=== PATIENT | male | born 1995 | race Caucasian/White ===

== ENCOUNTER 2020-09-30 12:27 | Emergency (ER) | payer OTHER ==
[~2020-09-30 12:27] MED LIST: MOTRIN600 MG PO; NAPROXEN500 MG PO; NEOSPORIN OIN14.2 GM TOP
[2020-10-05 00:06] LABS: CHLAMYDIA TRACHOMATIS, NAA Positive (Negative); NEISSERIA GONORRHOEAE, NAA Negative (Negative)
== END 2020-09-30 15:49 | disposition home or self-care (01) ==
LOC: FER 12:27
PROVIDERS: Nurse Practitioner Family
DX: A64 Unspecified sexually transmitted disease (principal); J02.9 Acute pharyngitis, unspecified
CPT/HCPCS: 87491; 87591; 99283; J0696

== ENCOUNTER 2020-10-08 17:51 | Emergency (ER) | payer OTHER ==
[2020-10-08] MEDS ORDERED: IBUPROFEN800 MG PO (19:13)
== END 2020-10-08 19:35 | disposition home or self-care (01) ==
LOC: FER 17:51
DX: S90.31XA Contusion of right foot, initial encounter (principal); M25.571 Pain in right ankle and joints of right foot; F17.210 Nicotine dependence, cigarettes, uncomplicated; W10.9XXA Fall (on) (from) unspecified stairs and steps, initial encounter; Y92.009 Unspecified place in unspecified non-institutional (private) residence as the place of occurrence of the external cause
CPT/HCPCS: 73610; 73630

== ENCOUNTER 2020-10-31 21:47 | Emergency (ER) | payer OTHER ==
[~2020-10-31 21:47] MED LIST changes: +IBUPROFEN800 MG PO
== END 2020-10-31 22:25 | disposition left against medical advice (07) ==
LOC: FER 21:47
DX: Z53.8 Procedure and treatment not carried out for other reasons (principal)
CPT/HCPCS: 73130

== ENCOUNTER 2020-12-13 21:11 | Emergency (ER) | payer OTHER ==
[2020-12-13 21:55] LABS: BILIRUBIN NEGATIVE (NEGATIVE); BLOOD NEGATIVE Ery/uL (NEGATIVE); CLARITY CLEAR (CLEAR); COLOR YELLOW (YELLOW); GLUCOSE (U) NORMAL (NORMAL); LEUKOCYTES NEGATIVE Leu/uL (NEGATIVE); NITRITE NEGATIVE (NEGATIVE); PROTEIN NEGATIVE (NEGATIVE)
[2020-12-17 07:06] LABS: CHLAMYDIA TRACHOMATIS, NAA Positive (Negative); NEISSERIA GONORRHOEAE, NAA Negative (Negative)
== END 2020-12-13 22:53 | disposition home or self-care (01) ==
LOC: FER 21:11
PROVIDERS: Emergency Medicine
DX: Z20.2 Contact with and (suspected) exposure to infections with a predominantly sexual mode of transmission (principal); R36.9 Urethral discharge, unspecified
CPT/HCPCS: 81003; 87491; 87591; 99283; J0696

== ENCOUNTER 2021-01-27 04:34 | Emergency (ER) | payer SELFPAY | END 2021-01-27 07:05 | disposition home or self-care (01) | LOC: FER 04:34 | DX: S09.90XA Unspecified injury of head, initial encounter (principal); S10.93XA Contusion of unspecified part of neck, initial encounter; F10.129 Alcohol abuse with intoxication, unspecified; Z87.820 Personal history of traumatic brain injury; Y04.2XXA Assault by strike against or bumped into by another person, initial encounter; Y92.009 Unspecified place in unspecified non-institutional (private) residence as the place of occurrence of the external cause; Y07.410 Brother, perpetrator of maltreatment and neglect | CPT/HCPCS: 70450; 72040 ==

== ENCOUNTER 2021-08-05 03:11 | Emergency (ER) | payer SELFPAY ==
[2021-08-05 05:00] LABS: INFLUENZA A NAA NEGATIVE (NEGATIVE)
[2021-08-05 05:03] LABS: CORONAVIRUS 2019 SARS-COV-2 POSITIVE (NEGATIVE)
[2021-08-05 05:03] LABS: BILIRUBIN NEGATIVE (NEGATIVE); BLOOD NEGATIVE Ery/uL (NEGATIVE); CLARITY CLEAR (CLEAR); COLOR YELLOW (YELLOW); GLUCOSE (U) NORMAL (NORMAL); LEUKOCYTES TRACE Leu/uL (NEGATIVE); NITRITE NEGATIVE (NEGATIVE); PROTEIN NEGATIVE (NEGATIVE); SPECIFIC GRAVITY 1.025 (1.001-1.030); UROBILINOGEN 0.2 mg/dL (0.2-1.0); pH 6.5 (5.0-9.0)
[2021-08-05] MEDS ORDERED: IBUPROFEN800 MG PO (05:08)
[2021-08-05 05:09] LABS: SQUAMOUS EPITHELIAL CELLS RARE
[2021-08-07 21:09] LABS: CHLAMYDIA TRACHOMATIS, NAA Positive (Negative); NEISSERIA GONORRHOEAE, NAA Negative (Negative)
== END 2021-08-05 05:20 | disposition home or self-care (01) ==
LOC: FER 03:11
PROVIDERS: Emergency Medicine Emergency Medical Services
DX: N34.2 Other urethritis (principal); U07.1 COVID-19; F17.210 Nicotine dependence, cigarettes, uncomplicated
CPT/HCPCS: 81001; 87491; 87591; 99283; J0696; U0002

== ENCOUNTER 2021-11-16 03:19 | Emergency (ER) | payer SELFPAY ==
[2021-11-16 04:37] LABS: BILIRUBIN NEGATIVE (NEGATIVE); BLOOD NEGATIVE Ery/uL (NEGATIVE); COLOR YELLOW (YELLOW); GLUCOSE (U) NORMAL (NORMAL); LEUKOCYTES 2+ Leu/uL (NEGATIVE); NITRITE NEGATIVE (NEGATIVE); PROTEIN NEGATIVE (NEGATIVE); SPECIFIC GRAVITY 1.025 (1.001-1.030); UROBILINOGEN 0.2 mg/dL (0.2-1.0); pH 6.5 (5.0-9.0)
[2021-11-16 04:38] LABS: CLARITY SLIGHTLY HAZY (CLEAR)
[2021-11-16 04:44] LABS: BACTERIA TRACE; TRANSITIONAL EPITHELIAL CELLS RARE
[2021-11-16] MEDS ORDERED: VIBRAMYCIN100 MG PO (05:43)
[2021-11-19 21:10] LABS: CHLAMYDIA TRACHOMATIS, NAA Negative (Negative); NEISSERIA GONORRHOEAE, NAA Positive (Negative)
== END 2021-11-16 06:11 | disposition home or self-care (01) ==
LOC: FER 03:19
PROVIDERS: Internal Medicine
DX: A64 Unspecified sexually transmitted disease (principal); F17.210 Nicotine dependence, cigarettes, uncomplicated
CPT/HCPCS: 81001; 87491; 87591; J0696

== ENCOUNTER 2022-03-16 02:06 | Emergency (ER) | payer SELFPAY ==
[~2022-03-16 02:06] MED LIST changes: +VIBRAMYCIN100 MG PO
[2022-03-16 02:59] LABS: BUN/CREAT RATIO (CALC) 13.1 RATIO; CREATININE 0.99 mg/dL (0.67-1.17); POTASSIUM 3.2 mmol/L (3.5-5.1)
[2022-03-16 03:20] LABS: BASOPHIL 0.7 % (0-2); EOSINOPHIL 1.3 % (0-5); HCT 53.3 % (42.0-52.0); HGB 18.3 g/dl (13.2-18.0); LYMPHOCYTE 15.2 % (15-48); MCH 32.7 pg (25.0-31.0); MCHC 34.3 g/dL (32.0-36.0); MCV 95.2 fL (78.0-100.0); MONOCYTE 6.3 % (0-12); MPV 10.2 fL (6.0-9.5); NRBC 0; PLT 247 K/uL (150-400); RDW 11.9 % (11.5-14.0); WBC 13.6 K/uL (4.0-10.5)
[2022-03-16 04:01] LABS: BILIRUBIN NEGATIVE (NEGATIVE); BLOOD TRACE-INTACT Ery/uL (NEGATIVE); CLARITY CLEAR (CLEAR); COLOR YELLOW (YELLOW); GLUCOSE (U) NORMAL (NORMAL); LEUKOCYTES NEGATIVE Leu/uL (NEGATIVE); NITRITE NEGATIVE (NEGATIVE); PROTEIN TRACE (LOW) mg/dL (NEGATIVE); SPECIFIC GRAVITY 1.025 (1.001-1.030); UROBILINOGEN 0.2 mg/dL (0.2-1.0)
[2022-03-16 04:07] LABS: ECSTASY (MDMA) NEGATIVE (NEGATIVE); MARIJUANA (THC) NEGATIVE (NEGATIVE)
[2022-03-16 04:08] LABS: AMPHETAMINES NEGATIVE (NEGATIVE); BARBITURATES NEGATIVE (NEGATIVE); METHADONE NEGATIVE (NEGATIVE); OPIATES POSITIVE (NEGATIVE); OXYCODONE NEGATIVE (NEGATIVE)
[2022-03-16 04:15] LABS: BACTERIA TRACE; SQUAMOUS EPITHELIAL CELLS RARE; URINARY RBC RARE; URINARY WBC RARE
[2022-03-16 04:22] LABS: CORONAVIRUS 2019 SARS-COV-2 NEGATIVE (NEGATIVE); INFLUENZA A NAA NEGATIVE (NEGATIVE)
== END 2022-03-16 04:35 | disposition other institution (70) ==
LOC: FER 02:06
PROVIDERS: Emergency Medicine
DX: S06.5X9A Traumatic subdural hemorrhage with loss of consciousness of unspecified duration, initial encounter (principal); S06.6X9A Traumatic subarachnoid hemorrhage with loss of consciousness of unspecified duration, initial encounter; S90.812A Abrasion, left foot, initial encounter; S90.811A Abrasion, right foot, initial encounter; S80.212A Abrasion, left knee, initial encounter; S40.212A Abrasion of left shoulder, initial encounter; S00.12XA Contusion of left eyelid and periocular area, initial encounter; S00.83XA Contusion of other part of head, initial encounter; F17.200 Nicotine dependence, unspecified, uncomplicated; Z23 Encounter for immunization; Z20.822 Contact with and (suspected) exposure to COVID-19; Y04.0XXA Assault by unarmed brawl or fight, initial encounter; Y92.89 Other specified places as the place of occurrence of the external cause
CPT/HCPCS: 36415; 70450; 70486; 71250; 72125; 73020; 73630; 80048; 80305; 81001; 85025; 90471; 90715; G0480; J1170; J2310; J2405; J3010; J7120; U0002

== ENCOUNTER 2022-04-08 01:27 | Emergency (ER) | payer OTHER ==
[2022-04-08 01:46] LABS: BASOPHIL 0.7 % (0-2); EOSINOPHIL 5.4 % (0-5); HCT 49.1 % (42.0-52.0); HGB 16.4 g/dl (13.2-18.0); LYMPHOCYTE 38.7 % (15-48); MCH 32.1 pg (25.0-31.0); MCHC 33.4 g/dL (32.0-36.0); MCV 96.1 fL (78.0-100.0); MONOCYTE 8.4 % (0-12); MPV 9.4 fL (6.0-9.5); NEUTROPHIL 46.7 % (41-80); NRBC 0; PLT 248 K/uL (150-400); RBC 5.11 M/uL (4.70-6.00); RDW 11.7 % (11.5-14.0); WBC 6.8 K/uL (4.0-10.5)
[2022-04-08 01:58] LABS: PROTHROMBIN TIME 12.9 SECONDS (11.9-13.9)
[2022-04-08 01:59] LABS: PTT 30.9 SECONDS (24.9-34.6)
[2022-04-08 02:02] LABS: BILIRUBIN - TOTAL 0.8 mg/dL (0.2-1.0); BUN/CREAT RATIO (CALC) 16.1 RATIO; CREATININE 0.93 mg/dL (0.67-1.17); GLOBULIN (CALCULATION) 3.6 g/dL; POTASSIUM 3.8 mmol/L (3.5-5.1); TOTAL PROTEIN 7.6 g/dL (6.4-8.2)
[2022-04-08 02:33] LABS: CORONAVIRUS 2019 SARS-COV-2 NEGATIVE (NEGATIVE); INFLUENZA A NAA NEGATIVE (NEGATIVE)
== END 2022-04-08 05:01 | disposition other institution (70) ==
LOC: FER 01:27
PROVIDERS: Emergency Medicine
DX: S06.5X0A Traumatic subdural hemorrhage without loss of consciousness, initial encounter (principal); F17.200 Nicotine dependence, unspecified, uncomplicated; Z20.822 Contact with and (suspected) exposure to COVID-19; Z28.310 Unvaccinated for COVID-19; Y09 Assault by unspecified means
CPT/HCPCS: 36415; 70450; 80053; 85025; 85610; 85730; U0002